=== PATIENT | male | born 1945 | race Caucasian/White ===

== ENCOUNTER 2018-01-24 12:53 | Emergency (ER) | payer OTHER, BC ==
[2018-01-24] MEDS ORDERED: ACETAMINOPHEN 325 MG TABLET PO ONE (13:53)
[2018-01-24] MEDS ORDERED: METHOCARBAMOL 500 MG TABLET PO ONE (14:48)
[2018-01-24] MEDS ORDERED: LIDOCAINE 5% (700 MG) TRANSDERMAL ADH..PATCH TP ONE (15:09)
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
[2018-01-24 16:49] VITALS: BP 126/63
== END 2018-01-24 16:49 | disposition home or self-care (01) ==
LOC: ER 12:53
DX: S16.1XXA Strain of muscle, fascia and tendon at neck level, initial encounter (principal); M54.9 Dorsalgia, unspecified; M25.512 Pain in left shoulder; M54.2 Cervicalgia; V87.7XXA Person injured in collision between other specified motor vehicles (traffic), initial encounter; Z95.1 Presence of aortocoronary bypass graft; I25.10 Atherosclerotic heart disease of native coronary artery without angina pectoris; E11.9 Type 2 diabetes mellitus without complications; Z87.891 Personal history of nicotine dependence
CPT/HCPCS: 72070; 72110; 72125; 99284